=== PATIENT | male | born 1975 | race Caucasian/White ===

== ENCOUNTER 2016-08-19 18:40 | Emergency (ER) | payer SELFPAY ==
[2016-08-19 22:00] LABS: HEMOGLOBIN 14.6 gm/dl (14.0-17.5); RED BLOOD COUNT 4.59 M/UL (4.20-5.50); WHITE BLOOD COUNT 15.7 K/UL (4.5-11.0)
[2016-08-19 22:12] LABS: BUN/CREATININE RATIO 21 (0-10)
== END 2016-08-20 01:32 | disposition home or self-care (01) ==
LOC: ER1 18:40
PROVIDERS: Family Medicine
DX: S93.105A Unspecified dislocation of left toe(s), initial encounter (principal); S91.112A Laceration without foreign body of left great toe without damage to nail, initial encounter; S00.83XA Contusion of other part of head, initial encounter; F17.200 Nicotine dependence, unspecified, uncomplicated; V29.9XXA Motorcycle rider (driver) (passenger) injured in unspecified traffic accident, initial encounter; Y92.410 Unspecified street and highway as the place of occurrence of the external cause; Z23 Encounter for immunization
CPT/HCPCS: 70450; 71101; 71260; 72125; 73130; 73630; 80053; 85025; 90471; 90714; 96374; 96375; 99284; J2270; J2405; J7030; J7050; Q9962

== ENCOUNTER 2021-03-03 13:48 | Emergency (ER) | payer OTHER ==
[2021-03-03 14:28] LABS: HEMOGLOBIN 13.5 gm/dl (14.0-17.5); RED BLOOD COUNT 4.28 M/UL (4.20-5.50); WHITE BLOOD COUNT 18.6 K/UL (4.5-11.0)
[2021-03-03 15:00] LABS: BUN/CREATININE RATIO 16 (0-10)
[2021-03-03] MEDS ORDERED: FLOMAX0.4 MG PO (16:44)
[2021-03-03] MEDS ORDERED: TORADOL 10 MG T10 MG PO (16:44)
== END 2021-03-03 17:27 | disposition home or self-care (01) ==
LOC: ER1 13:48
PROVIDERS: Physician Assistant
DX: N20.2 Calculus of kidney with calculus of ureter (principal); F17.220 Nicotine dependence, chewing tobacco, uncomplicated
CPT/HCPCS: 80053; 81001; 85025; 96374; 96375; 99284; J1885; J2405